=== PATIENT | male | born 1980 | race Caucasian/White ===

== ENCOUNTER 2016-11-02 05:57 | Day surgery (SDC) | payer OTHER ==
[~2016-11-02] VITALS: Ht 185.4 cm; Wt 115.3 kg
--- NOTE | ~2016-11-02 | O ---
[facility] [place] [address] OPERATIVE REPORT Name: LISY VIEIRA Room #: [place] [facility] [place]Shaun.#: [id number] Admission: 11/02/16 Attend Phys: Jareth Winslow MD Discharge: 11/02/16 Date of : 78 Report #: [id number] THIS REPORT FOR: //name// CC: FAM unknown Jareth Winslow DATE OF SERVICE: 11/02/2016 DATE OF SERVICE: 11/02/2016 PREOPERATIVE DIAGNOSIS: Right knee trochlear chondral defect, full thickness. POSTOPERATIVE DIAGNOSIS: Right knee trochlear chondral defect, full thickness. PROCEDURE: Right knee osteochondral allograft with Cartiform. SURGEON: Jareth Winslow MD CHILD ADOLESCENT PSYCHIATRIST: LEVAR Bird ANESTHETIC: General. INDICATIONS: See hospital H and P. DESCRIPTION OF PROCEDURE: After adequate general anesthesia had been obtained, the patient's right lower extremity was prepped and draped in the usual meticulous sterile fashion. Limb was exsanguinated with gravity, tourniquet inflated to 350 torr. An anterior midline incision was made. We incorporated his 2 previous incisions which resulted in a curvilinear incision. Subq was divided sharply. Medial parapatellar incision was made. The patella was translated laterally to expose the trochlea. Trochlear defect was identified. The patella was visualized and he had grade 2 chondral wear diffusely on the patella, on the trochlear side in the sulcus, he had a full thickness chondral defect. This was circumscribed with a #15 blade and then the cartilage was removed down to the subchondral bone. The defect measured approximately 13 mm in diameter. It was irrigated copiously. The Cartiform graft had been reconstituted while the knee was being prepared. It was thawed in warm saline and then we measured the defect, marked on the graft and outline of the defect and then used Metzenbaum to contour the graft to fit into his defect. We placed the central TightRope anchor and then 4 PushLock anchors peripherally on the graft. The drill holes were placed and 3-0 Vicryl sutures were passed through the graft on each of the 4 corners and then the graft was delivered into the wound and secured in place with the use of PushLock anchors. The central anchor did not appear to deploy properly and so it was left alone, but the graft was fairly securely in position. The wound was then [facility] [address] [place] [address] OPERATIVE REPORT Name: LISY VIEIRA Room #: [place] [facility] [place]almis#: [id number] Admission: 11/02/16 Attend Phys: Jareth Winslow MD Discharge: 11/02/16 Date of : 78 Report #: [id number] irrigated copiously. The retinacular layer closed with combination of an interrupted [id number] #1 Vicryl followed by a running #1 Tevdek, subq closed with 2-0 Monocryl, skin closed with brad. Sterile compressive dressing applied. Tourniquet then deflated. <ELECTRONICALLY SIGNED> By: Jareth Winslow MD 11/09/16 1411 1426 1451 Jareth Winslow MD /nt
[2016-11-02 11:42] VITALS: BP 131/81
[2016-11-02 14:44] VITALS: BP 131/81
== END 2016-11-02 15:40 | disposition home or self-care (01) ==
LOC: TBA 05:57 → OR 05:57 → TBA 05:59 → OR 10:53
DX: M25.861 Other specified joint disorders, right knee (principal); Z88.8 Allergy status to other drugs, medicaments and biological substances
CPT/HCPCS: 50010; 50101; 50415; 50612; 50954; 50991; 50992; 51412; 51771; 55430; 56525; 56527; 62110; 62900; 70005